=== PATIENT | male | born 1945 | race African-American/Black ===

== ENCOUNTER 2016-10-07 12:02 | Day surgery (SDC) | payer MEDICARE, OTHER ==
--- NOTE | ~2016-10-07 | EGD ---
EGD REPORT [facility] [address] [place] [id number] NAME: BRENDEN JOHNSON : [birth year] STATUS : REG [facility]#: [id number] AGE: 71 ADM/REG DATE : 10/07/16 MR#: [id number] REPORT SERV DATE: 10/07/16 DICTATED BY: NEVA MENG DATE: 10/07/16 REPORT STATUS : Draft [facility]ANS[facility]IBED BY: [facility] DATE: 10/07/16 [facility] Patient Name: Brenden Johnson Date of : 1945 Attending MD: HEMANTH MENG MD Procedure Date No Time: 10/07/2016 Procedure: Colonoscopy Indications: High risk colon cancer surveillance: Personal history of colonic polyps, Last colonoscopy: May 2011 Referring MD: LEILANI LOPEZ Medicines: See the Anesthesia note for documentation of the administered medications Complications: No immediate complications. Estimated blood loss: None. Procedure: Pre-Anesthesia Assessment: - ASA Grade Assessment: II - A patient with mild systemic disease. - Prior to the procedure, a History and Physical was performed, and patient medications and allergies were reviewed. The patient's tolerance of previous anesthesia was also reviewed. The risks and benefits of the procedure and the sedation options and risks were discussed with the patient. All questions were answered, and informed consent was obtained. Prior Anticoagulants: The patient has taken aspirin, last dose was 7 days prior to procedure. After reviewing the risks and benefits, the patient was deemed in satisfactory condition to undergo the procedure. After I obtained informed consent, the scope was passed under direct vision. Throughout the procedure, the patient's blood pressure, pulse, and oxygen saturations were monitored continuously. The PCF [id number] was introduced through the anus and advanced to the terminal ileum. The ileocecal valve, appendiceal orifice, terminal ileum and rectum were photographed. The entire colon was examined. The colonoscopy was performed without difficulty. The patient tolerated the procedure well. The quality of the bowel preparation was adequate. Findings: The perianal and digital rectal examinations were normal. The terminal ileum appeared normal. A sessile polyp was found at the hepatic flexure. The polyp was 5 mm in size. The polyp was removed with a piecemeal technique using a cold biopsy forceps. Resection and retrieval were complete. Non-bleeding internal hemorrhoids were found during retroflexion and EGD REPORT [address] [place]. [address] NAME: BRENDEN JOHNSON : [birth year] STATUS : REG [facility]#: [id number] AGE: 71 ADM/REG DATE : 10/07/16 MR#: [id number] REPORT SERV DATE: 10/07/16 DICTATED BY: NEVA MENG DATE: 10/07/16 REPORT STATUS : Draft TRANSCRIBED BY: [employer] DATE: 10/07/16 were Grade I (internal hemorrhoids that do not prolapse). No other significant abnormalities were identified in a careful examination of the remainder of the colon. Impression: - The examined portion of the ileum was normal. - One 5 mm polyp at the hepatic flexure. Resected and retrieved. - Non-bleeding internal hemorrhoids. Recommendation: - Patient has a contact number available for emergencies. The signs and symptoms of potential delayed complications were discussed with the patient. Return to normal activities tomorrow. Written discharge instructions were provided to the patient. - Regular diet. - Continue present medications. - Await pathology results. - Repeat colonoscopy in 5 years for surveillance. Procedure Code(s): --- Professional --- 67532, Colonoscopy, flexible, proximal to splenic flexure; with biopsy, single or multiple Diagnosis Code(s): --- Professional --- K64.0, First degree hemorrhoids D12.3, Benign neoplasm of transverse colon Z86.010, Personal history of colonic polyps CPT copyright 2013 [employer]. All rights reserved. The codes documented in this report are preliminary and upon certified medical records coder review may be revised to meet current compliance requirements. HEMANTH MENG MD 10/07/2016 2:09 PM This report has been signed electronically. Number of Addenda: 0 Note Initiated On: 10/07/2016 1:46 PM Scope Withdrawal Time 0 hours 9 minutes 52 seconds [address] [place] [id number]
[~2016-10-07 12:02] MED LIST: ASAB PO; CARDCD300 PO; CARDU4 PO; CARTIA XT300 MG/24 PO; CAT1 PO; COZAAR100 MG PO; DYAZIDE1 CAP PO
== END 2016-10-07 23:59 | disposition home or self-care (01) ==
LOC: DMU 12:02
PROVIDERS: Internal Medicine Gastroenterology
PROC: 0DBK8ZZ Excision of Ascending Colon, Via Natural or Artificial Opening Endoscopic (ICD-10-PCS; principal; 2016-10-07 12:30)
DX: Z12.11 Encounter for screening for malignant neoplasm of colon (principal); D12.3 Benign neoplasm of transverse colon; K64.0 First degree hemorrhoids; Z86.010 Personal history of colon polyps; I10 Essential (primary) hypertension; F17.200 Nicotine dependence, unspecified, uncomplicated; Z79.82 Long term (current) use of aspirin; Z79.899 Other long term (current) drug therapy
CPT/HCPCS: 88305